=== PATIENT | female | born 1985 | race Caucasian/White ===

== ENCOUNTER → 2022-03-13 | Outpatient (CLI) | payer OTHER, SELFPAY ==
[2022-03-13 09:22] LABS: Absolute Lymphocyte Count 1.61 X10^3/uL (0.83-4.51); Absolute Neutrophil Count 8.7 X10^3/uL (2.0-7.7); Basophil# 0.06 X10^3/uL; Basophil% 0.5 % (0-1); Eosinophil# 0.19 X10^3/uL; Eosinophils% 1.7 % (0-5); Hematocrit 37.4 % (37-47); Hemoglobin 12.4 g/dL (12.0-15.0); Lymphocyte # 1.61 X10^3/ul (0.83-4.51); Lymphocyte % 14.2 % (19-41); Mean Corp Hgb Conc 33.2 g/dL (32-36); Mean Corpuscular Hgb 30.7 pg (27.0-32.0); Mean Corpuscular Volume 92.6 fL (81-99); Mean Platelet Vol. 10.6 fl (6.2-12.0); Monocyte# 0.68 X10^3/uL; NRBC Flagged by Analyzer 0 % (0-5); Neutrophil # 8.69 X10^3/uL (2.7-7.7); Neutrophil % 76.5 % (47-70); Platelet Count 284 K/mm3 (150-450); RBC Distribution Width CV 12.5 % (11.6-14.6); RBC Distribution Width SD 42.6 fl (35.1-43.9); Red Blood Count 4.04 M/mm3 (4.2-5.4); White Blood Count 11.4 K/mm3 (4.4-11.0)
[2022-03-13 10:27] LABS: HIV - WCH Non-Reactive (Nonreactive); Syphilis Antibodies Non-reactive
== END | disposition home or self-care (01) ==
PROVIDERS: Referring Provider Obstetrics & Gynecology; Visit Provider Obstetrics & Gynecology
DX: Z34.90 Encounter for supervision of normal pregnancy, unspecified, unspecified trimester (principal)
CPT/HCPCS: 36415; 85025; 86703; 86780

== ENCOUNTER → 2022-04-15 | Outpatient (CLI) | payer OTHER, SELFPAY | END | disposition home or self-care (01) | LOC: LABSPEC 10:32 | PROVIDERS: Visit Provider Registered Nurse | DX: Z34.90 Encounter for supervision of normal pregnancy, unspecified, unspecified trimester (principal) | CPT/HCPCS: 87081 ==

== ENCOUNTER → 2022-05-06 | Outpatient (CLI) | payer OTHER, SELFPAY ==
--- NOTE | 2022-05-06 08:08 | US_ITS ---
STUDY: SECOND AND THIRD TRIMESTER OBSTETRICAL ULTRASOUND REASON FOR EXAM: Female, 36 years old growth LMP: 08/03/2021. TECHNIQUE: Transabdominal TECHNICAL QUALITY: Adequate. PRIOR ULTRASOUND: None. FINDINGS: There is a single intrauterine fetus. The fetus is in a cephalic presentation. There is demonstrated cardiac activity with a heart rate of 136 bpm. There is a normal amniotic fluid volume. The largest amniotic fluid pocket measures 3 cm x 2.6 cm. The amniotic fluid index (JAXON) is 6.8 cm. The placenta is fundal in location. There are Grade 1 placental changes. The cervical length was not measured due to head position. The adnexal regions are not visualized. BIOMETRY: BPD: 9.46 cm: 38 weeks, 4 days HC: 33.6 cm: 38 weeks, 3 days AC: 36.2 cm: 40 weeks, 1 days FL: 7.32 cm: 37 weeks, 3 days CI: 84% FL/BPD: 77% FL/HC: FL/AC: 20% HC/AC: 0.93 age by current US: 38 weeks, 1 days. LSIBETH by current US: 05/19/2022. Estimated weight: 3768 grams, +/- 565 grams, 70 %. Age by LMP: 39 weeks, 3 days. LISBETH by LMP: 05/10/2022. US/OB Limited With Biometrics IMPRESSION: Single live intrauterine gestation with a mean gestational age of 38 weeks and 1 day. Electronically Signed: Jake Yan MD at 10:56 EST ,
== END | disposition home or self-care (01) ==
PROVIDERS: Referring Provider Obstetrics & Gynecology; Visit Provider Obstetrics & Gynecology
DX: O26.849 Uterine size-date discrepancy, unspecified trimester (principal)
CPT/HCPCS: 76816

== ENCOUNTER 2022-05-15 01:35 | Inpatient (IN) | payer OTHER, SELFPAY ==
[2022-05-15] VITALS (48 sets, daily range): BP systolic 97–142; BP diastolic 55–80; PULSE 78–198; RESP 16–18; TEMP 36.7–37.2; O2SAT 83–99; BMI 26.1
[2022-05-15] MEDS: Lactated Ringers 1,000 ML 200 ML IV (02:00)
[2022-05-15] MEDS: LACTATED RINGERS 500 ML 999 ML IV (02:00)
--- NOTE | 2022-05-15 02:15 | HP.PCM.OB_ITS ---
HPI - General General Date of Admission: 05/15/22 HPI Narrative DANA HOLLOWAY, is a 36 F who presents IAL regular ctx no vb lof Maternal Data Information LISBETH Calculator Estimated Delivery Date Method Current WG Current Estimate 05/10/22 LMP (Certain) 40w 5d PFSH PFSH Medical History (Updated 05/15/22 @ 02:[address] Annika Torre MD) Family history of hearing loss at age younger than 7 years Home Medications docosahexaenoic acid 200 mg capsule ( DHA) mg PO 02/25/22 [History Last Taken Unknown] 1 cap DAILY 05/15/22 [History Last Taken 05/13/22 20:00 1 cap] Allergy/AdvReac Type Severity Reaction Status Date / Time prednisone Allergy Mild chest pain Verified 05/13/22 10:58 amoxicillin [From Augmentin] AdvReac Mild migraine Verified 05/13/22 10:58 clavulanic acid AdvReac Mild migraine Verified 05/13/22 10:58 [From Augmentin] Family History Father Hypertension Hyperlipidemia Grandmother Colon cancer Surgical History S/P laparoscopic procedure Social History Smoking Status: Never smoker alcohol intake: never substance use type: does not use caffeine: No what type of physical activity do you participate in: walking frequency: 1-2 times per week seatbelt use: always do you feel safe at home: Yes additional social history: -Bryan History 4 Elective abortions Hx Para 2 Spontaneous abortions 1 Hx # Term Pregnancies Ectopic pregnancies Hx # Pregnancies Multiple births # of living children Past Pregnancies Del. 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 Baby was face up, used vacuum Delivery Date: 10/23/20 Last Updated by: April Celestin No issues with or delivery. Visit Details Expected Delivery Route/Plan Labor Preferences- CB/BF classes: [] labor support person: Bryan labor intervention preferences: low pain management options preferred: prefer natural and would like a tub cut cord/dad catch: [] : yes PP control planned: [condoms] discussed possible routes of delivery and associated risks: [] special requests: [] Plans Covid status: [] Flu vaccine: [] Tdap vaccine: obtained Rhogam: na LARC form signed:signed Problem list reviewed and updated with the most current plan of care details and appropriate orders placed. Relevant counseling for the gestational age provided. Continue routine care and follow up unless otherwise noted in visit notes/problem list details OB Flowsheet Initial Weight: Not Recorded Date -?-?-?-?-?-?-?-?-?-?-?-?- EGA Weight BP Urine Prot -?-?-?-?-?-?-?-?-?-?-?-?- Glucose FHR FuHt Pres Dilation -?-?-?-?-?-?-?-?-?-?-?-?- Effaced St Visit Note 02/25/22 -?-?-?-?-?-?-?-?-?-?-?-?- 29w 3d 136 lb 8 oz 102/66 -?-?-?-?-?-?-?-?-?-?-?-?- 135 27 -?-?-?-?-?-?-?-?-?-?-?-?- JV- new transfer , waiting on records. 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 03/13/22 -?-?-?-?-?-?-?-?-?-?-?-?- 31w 5d 140 lb 114/72 Negative -?-?-?-?-?-?-?-?-?-?-?-?- Negative 144 32 -?-?-?-?-?-?-?-?-?-?-?-?- LC-no lof/ctx/vb . good fm. tdap today. larc. going to get 28 week labs today. 03/25/22 -?-?-?-?-?-?-?-?-?-?-?-?- 33w 3d 141 lb 119/73 Negative -?-?-?-?-?-?-?-?-?-?-?-?- Negative 145 32 -?-?-?-?-?-?-?-?-?-?-?-?- JV- still measur ing a little small. ordering growth scan for hopefully apr 15 . No lof, vaginal bleeding, or dec fm. 04/10/22 -?-?-?-?-?-?-?-?-?-?-?-?- 35w 5d 145 lb 92/70 -?-?-?-?-?-?-?-?-?-?-?-?- 150 35 -?-?-?-?-?-?-?-?-?-?-?-?- SM- no vb lof go od fm no regular ctx. discussed labor preferences. measuring appropriately will hold off on ultrasound 04/15/22 -?-?-?-?-?-?-?-?-?-?-?-?- 36w 3d 145 lb 2 oz 98/65 Nega tive -?-?-?-?-?-?-?-?-?-?-?-?- Negative 143 36 Cephalic -?-?-?-?-?-?-?-?-?-?-?-?- LC- no vb/ctx/lo f. good fm. no concerns. gbs collected declines VE. 04/24/22 -?-?-?-?-?-?-?-?-?-?-?-?- 37w 5d 146 lb 8 oz 127/76 Nega tive -?-?-?-?-?-?-?-?-?-?-?-?- Negative 150 34 Cephalic -?-?-?-?-?-?-?-?-?-?-?-?- JV- still measur ing small on my exam. pt declines growth scan. has great movement, no lof or contractions. declines pelvic exam. vtx on bedside scan. 05/01/22 -?-?-?--?-?-?-?-?-?-?-?-?- 38w 5d 148 lb 6 oz 123/75 -?-?-?-?-?-?-?-?-?-?-?-?- 150 36 Cephalic -?-?-?-?-?-?-?-?-?-?-?-?- Sm- no vb lof go od fm no regular ctx Sm- no vb lof good fm no reg ular ctx. discussed getting growth US, patient agrees to get. 05/06/22 -?-?-?-?-?-?-?-?-?-?-?-?- 39w 3d 148 lb 2 oz 119/80 -?-?-?-?-?-?-?-?-?-?-?-?- 145 37 Cephalic -?-?-?-?-?-?-?-?-?-?-?-?- LC- no vb/ctx/lo f. good fm. growth scan -71%. 05/13/22 -?-?-?-?-?-?-?-?-?-?-?-?- 40w 3d 151 lb 2 oz 117/74 Nega tive -?-?-?-?-?-?-?-?-?-?-?-?- Negative 140 38 Cephalic -?-?-?-?-?-?-?-?-?-?-?-?- JV- colten 8 today (was 6.8 last week) estimated to be 8-9 pounds today. declines IOL, will need nst if still next week. 05/15/22 -?-?-?-?-?-?-?-?-?-?-?-?- 40w 5d 152 lb 5.431 oz 120/80 -?-?-?-?-?-?-?-?-?-?-?-?- -?-?-?-?-?-?-?-?-?-?-?-?- NST FHR Rate Baby A Baseline: 140 Variability:: Moderate Accelerations:: 15 x 15 Decelerations:: None NST Reactive:: Yes FHR Category:: Category I Uterine Activity:: q3-5 ROS Constitutional Constitutional: Reports systems reviewed and no addt'l complaints, except as documented ENT HEENT: Reports systems reviewed and no addt'l complaints, except as documented Cardiovascular Cardiovascular: Reports systems reviewed and no addt'l complaints, except as documented Respiratory/Chest Respiratory/Chest: Reports systems reviewed and no addt'l complaints, except as documented Gastrointestinal Gastrointestinal: Reports systems reviewed and no addt'l complaints, except as documented and nausea; Denies abdominal pain Genitourinary Genitourinary: Reports systems reviewed and no addt'l complaints, except as documented, contractions Details: present and frequency (regular ) and movement Details: present Musculoskeletal Musculoskeletal: Reports systems reviewed and no addt'l complaints, except as documented Integumentary Integumentary: Reports as per HPI Neurologic Neurologic: Reports systems reviewed and no addt'l complaints, except as documented Endocrine Endocrinology: Reports systems reviewed and no addt'l complaints, except as documented Vital Signs Vital Signs Vital Signs: 05/15/22 01:24 05/15/22 01:24 05/15/22 01:24 Temperature Temperature Source Temporal Pulse Rate 108 H Blood Pressure 120/80 BP Systolic 120 BP Diastolic 80 Pulse Ox 05/15/22 01:25 05/15/22 01:25 05/15/22 01:24 Temperature 98.1 F Temperature Source Pulse Rate 101 H Blood Pressure BP Systolic BP Diastolic Pulse Ox 97 Weight Weight: 152 lb 5.431 oz Body Mass Index (BMI) 26.1 Physical Exam Const alert, oriented x3 and healthy appearing Constitutional Narrative: uncomfortable with contractions HEENT normocephalic and moist oral mucous membranes Head and Scalp: atraumatic Neck full ROM, no lymphadenopathy, supple and thyroid normal General: trachea midline Thyroid: thyroid normal Lymph Lymphatic: no lymphadenopathy noted Chest inspection of chest normal Resp normal respiratory effort Cardio regular rate GI normal to inspection, nondistended, normoactive bowel sounds, soft to palpation and non-tender Inspection: gravid external exam normal Bimanual Exam - Vag & Uterus: uterus non-tender Manual OB Exam: estimated gestational size appropriate, presentation cephalic, dilated, effaced and station Extremity normal to inspection General Extremity: Negative for edema Skin no rashes or lesions noted Neuro deep tendon reflexes 2+ bilaterally Motor Exam: strength 5/5 throughout and clonus absent Psych mental status grossly normal Labs Labs Labs: Hct 37.4 % (37-47) Hgb 12.4 g/dL (12.0-15.0) Obstetrics US Syphilis Total Ab Non-reactive HIV 1&2 Antibody Non-Reactive (Nonreactive) Assessment & Plan (1) Supervision of normal : COMMENT: PRR LISBETH 05/10/22 surprise Tyron Cardenas Bryan (2) : QUALIFIERS: Weeks of gestation: 40 weeks Qualified Code(s): Z3A.40 - 40 weeks gestation of COMMENT: GBS neg. normal anatomy,lab error for genetic screening- not reobtained. transfer of care: NOB labs neg HIV/syphilis/hep c, b.gc/ct negative. nob urine cx negative. 1 trimester u/s- CRL c/w LMP. (3) Rubella non-immune status, antepartum: COMMENT: offer MMR . indeterminate on 10/16/2021 (4) Active labor at term: PLAN: Plan Patient presents IAL, plan expectant management for , pitocin/AROM PRN if n eeded. Pain management: considering epidural. GBS neg. Management of any complications: none I have reviewed the [facility] and made any clinically relevant updates.
[2022-05-15 02:20] LABS: Absolute Lymphocyte Count 2.15 X10^3/uL (0.83-4.51); Absolute Neutrophil Count 8.9 X10^3/uL (2.0-7.7); Basophil# 0.16 X10^3/uL; Basophil% 1.2 % (0-1); Eosinophil# 0.31 X10^3/uL; Eosinophils% 2.4 % (0-5); Hematocrit 33.4 % (37-47); Lymphocyte # 2.15 X10^3/ul (0.83-4.51); Lymphocyte % 16.6 % (19-41); Mean Corp Hgb Conc 32.9 g/dL (32-36); Mean Corpuscular Hgb 30.9 pg (27.0-32.0); Mean Corpuscular Volume 93.8 fL (81-99); Mean Platelet Vol. 11.5 fl (6.2-12.0); Monocyte# 0.94 X10^3/uL; Monocyte% 7.2 % (0-10); NRBC Flagged by Analyzer 0 % (0-5); Neutrophil # 8.94 X10^3/uL (2.7-7.7); Platelet Count 253 K/mm3 (150-450); RBC Distribution Width CV 13.2 % (11.6-14.6); RBC Distribution Width SD 45.1 fl (35.1-43.9); Red Blood Count 3.56 M/mm3 (4.2-5.4)
[2022-05-15] MEDS: fentaNYL-bupivacaine (epidural) 100 ML BAG EPIDURAL (02:43)
[2022-05-15 03:22] LABS: Syphilis Antibodies Non-reactive
[2022-05-15] MEDS: Oxytocin 10 UNITS/ML Vial IM (03:56)
[2022-05-15] MEDS: Oxytocin 15 Units/NS 250ml 15 UNITS/250 ML IV.SOLN 83 UNITS IV (04:00)
--- NOTE | 2022-05-15 04:45 | EX.PCM.OBRPT ---
Assessment & Plan (1) Active labor at term: (2) Supervision of normal : COMMENT: PRR LISBETH 05/10/22 surprise Tyron Cardenas Bryan (3) : QUALIFIERS: Weeks of gestation: 40 weeks Qualified Code(s): Z3A.40 - 40 weeks gestation of COMMENT: GBS neg. normal anatomy,lab error for genetic screening- not reobtained. transfer of care: NOB labs neg HIV/syphilis/hep c, b.gc/ct negative. nob urine cx negative. 1 trimester u/s- CRL c/w LMP. (4) Rubella non-immune status, antepartum: COMMENT: offer MMR . indeterminate on 10/16/2021 (5) Vaginal delivery: COMMENT: SM IAL 40 girl mellisa Maternal Data Information LISBETH Calculator Estimated Delivery Date Method Current WG Current Estimate 05/10/22 LMP (Certain) 40w 5d Vaginal Delivery Operative Information Date of Procedure: 05/15/22 Pre-Operative Diagnosis: see a/p diagnoses Post-Operative Diagnosis: same Surgery / Procedure Performed: Spontaneous Vaginal Delivery Type of Anesthesia: Epidural Special Medications: none Estimated Blood Loss: 200 Fluids Replaced: crystalloid Findings Description of Procedure: Patient began pushing and delivered the head in the CHRISTINA presentation. The head was delivered atraumatically and a loose nuchal cord ?1 was identified and the infant delivered through without complication. The anterior and posterior shoulders delivered without complication followed by the rest of the and the infant was placed on the maternal abdomen. Delayed cord clamping was employed for approximately 60 seconds. Cord was clamped and cut and gentle traction was applied to the cord and the placenta delivered spontaneously immediately following it was noted to be intact with three-vessel cord. The perineum and vagina were inspected and noted to have a 2nd degree perineal laceration which was repaired in the usual fashion with 3-0 vicryl rapide. . EBL was 200 cc. Patient and infant tolerated delivery well. Amniotic Fluid Description: Clear Placental Delivery Description: Spontaneous Placenta Disposition: [facility] Cord Vessel Description: 3 Vessels Cord Entanglement: None Delayed Cord Clamping: Yes Post Vaginal Delivery Medications Given After Delivery: IV Pitocin Episiotomy Description: None Complication Complications: None Procedures Urinary/Genital [id number]: [id number] Vaginal Delivery [facility]
--- NOTE | 2022-05-15 04:46 | DCINST_ITS ---
Discharge Instructions Diet Discharge Diet: No restrictions Activity Discharge Activity: Return to Normal Activity, May Drive, May Shower and May Take a Tub Bath (in 4 weeks) May resume sexual activity in: 6-8 weeks (after seen by OB provider) Weight Bearing Status: Full weight bearing Lifting Restrictions: none Dressing / Incision Call your doctor if you observe: Fever of 101 or Higher, Inability to urinate, Using more than 1 pad per hour (for more than 2 hours in a row or more), Shortness of breath, Dizziness, Chest pain and - (headache not controlled with tylenol, change in vision) Follow Up Care When: in 6 weeks for visit, call the office to make the appointment. If you had elevated blood pressures call the office to be seen within 1 week. Test Results: Test results from this visit will be discussed in further detail at your follow- up appointment, if applicable. Discharge Plan Admission Admit Date/Time: 05/15/22 01:35 Attending Provider: Annika Torre Primary Care Provider: Care Physician,Janae Primary Discharge Orders/Prescriptions Prescriptions: No Action DHA 200 mg capsule PO 1 cap DAILY Referrals / Follow Up: Care Physician,No Primary [Primary Care Provider] - Disposition Disposition (needs filled in before D/C Order can be placed): Home, Self Care
[2022-05-15] MEDS: Methylergonovine 0.2 MG/ML Ampul IM (06:02)
[2022-05-15] MEDS: Naproxen 500 MG Tablet PO ×2 (09:26→17:50)
[2022-05-15] MEDS: Acetaminophen 500 MG Tablet 1000 MG PO ×3 (10:14→22:25)
[2022-05-15] MEDS: Senna/Docusate Sodium 1 Tablet PO (18:00)
[2022-05-16 00:17] VITALS: BP 99/63; PULSE 88
[2022-05-16] MEDS: oxyCODONE 5 MG Tablet PO (00:19)
[2022-05-16 00:21] VITALS: BP 99/63; PULSE 88; RESP 16; TEMP 36.6
[2022-05-16 05:24] VITALS: BP 100/61; PULSE 73
[2022-05-16 05:25] VITALS: BP 100/61; PULSE 70; RESP 16; TEMP 36.8; O2SAT 97
[2022-05-16] MEDS: Naproxen 500 MG Tablet PO (05:35)
[2022-05-16 09:18] VITALS: BP 91/54; PULSE 78
[2022-05-16 09:43] VITALS: BP 91/54; PULSE 78; RESP 14; TEMP 36.7; O2SAT 96
--- NOTE | 2022-05-16 09:56 | PCM.PN.OB ---
Subjective Subjective Patient doing well without complaints. Tolerating PO. Ambulating and voiding without difficulty. Feeding well. Denies chest pain, shortness of breath, calf pain/swelling, fevers, chills, lightheadedness. Objective Data Objective Data Vital Signs: Vital Signs Temp Pulse Resp BP Pulse Ox O2 Del Method 98.1 F 78 14 91/54 L 96 Room Air 05/16/22 09:43 05/16/22 09:43 05/16/22 09:43 05/16/22 09:43 05/16/22 09:43 05/16/22 09:43 Oxygen Delivery Method Room Air Weight: 152 lb 5.431 oz Body Mass Index (BMI) 26.1 Intake & Output: Intake and Output for Last 24 Hours 05/14/22 05/15/22 05/16/22 23:59 23:59 23:59 Intake Total 1499 / 1499 Output Total 1700 / 1700 Balance -201 / -201 Lab / Micro Data Result Diagrams: 05/15/22 02:00 ROS Constitutional Constitutional: Denies chills, fatigue, fever(s), poor appetite or weakness Eyes Eyes: Denies blurry vision, change in vision, seeing flashes or spots in vision ENT HEENT: Denies dizziness, headache(s), loss taste/smell or sore throat Cardiovascular Cardiovascular: Denies chest pain, dizziness, dyspnea, irregular heart rhythm, palpitations or rapid heart rate Respiratory/Chest Respiratory/Chest: Denies chest tightness, cough, dyspnea or breast pain Gastrointestinal Gastrointestinal: Denies abdominal pain, constipation or vomiting Genitourinary Genitourinary: Denies dysuria or flank pain Musculoskeletal Musculoskeletal: Denies difficulty walking, joint pain, limited range of motion or numbness Neurologic Neurologic: Denies abnormal movements, abnormal speech, dizziness, numbness, seizure-like activity or syncope Psychiatric Psychiatric: Denies anxiety, behavioral changes, change in appetite, confusion, depression or suicidal thoughts Physical Exam Const alert, oriented x3 and no apparent distress General Appearance: cooperative and comfortable Resp normal respiratory effort Cardio regular rate GI normal to inspection, nondistended, normoactive bowel sounds GI Narrative: uterus is firm below umbilicus Palpation: soft Back/Spine no CVA tenderness and thoraco-lumbar ROM normal Extremity normal to inspection, no clubbing, cyanosis or edema, no calf tenderness and no pedal edema Psych mental status grossly normal, thought process normal, cooperative, affect normal, speech normal, activity/motor behavior normal, denies homicidal ideation and denies suicidal ideation Assessment & Plan (1) Vaginal delivery: COMMENT: CARISSA MONTAÑO IAL 40 girl mellisa PLAN: s/p PPD # 1 1. routine post delivery care 2. breast feeding- support given 3. rh positive 4. rubella non-immune- vaccine offered 5. dc today per patient request.
== END 2022-05-16 11:08 | disposition home or self-care (01) | DRG 807 ==
LOC: WPOUT 01:36 → WP 01:36
PROVIDERS: Admitting Provider Obstetrics & Gynecology; Referring Provider Obstetrics & Gynecology; Visit Provider Obstetrics & Gynecology
DX: O70.1 Second degree perineal laceration during delivery (principal); Z37.0 Single live birth; O26.23 Pregnancy care for patient with recurrent pregnancy loss, third trimester; O48.0 Post-term pregnancy; O69.81X0 Labor and delivery complicated by cord around neck, without compression, not applicable or unspecified; Z3A.40 40 weeks gestation of pregnancy; Z28.39 Other underimmunization status
CPT/HCPCS: 59025; 59050; 85025; 86780; 86850; 86900; 86901; 99221; J7120; G0378

== ENCOUNTER → 2023-11-11 | Outpatient (CLI) | payer OTHER, SELFPAY ==
[2023-11-16 21:07] LABS: Chlamydia By Nucleic Acid AMP Negative (Negative); Gonococcus By Nucleic Acid AMP Negative (Negative)
[2023-11-17 11:09] LABS: HPV APTIMA, High Risk Negative (Negative)
== END | disposition home or self-care (01) ==
PROVIDERS: Referring Provider Obstetrics & Gynecology; Visit Provider Obstetrics & Gynecology
DX: O09.90 Supervision of high risk pregnancy, unspecified, unspecified trimester (principal); Z3A.00 Weeks of gestation of pregnancy not specified; Z12.4 Encounter for screening for malignant neoplasm of cervix
CPT/HCPCS: 87086; 87491; 87591; 87624; 88175; G0145

== ENCOUNTER → 2023-12-03 | Outpatient (CLI) | payer OTHER, SELFPAY ==
[2023-12-03 12:21] LABS: Absolute Lymphocyte Count 1.62 X10^3/uL (0.83-4.51); Basophil# 0.03 X10^3/uL; Basophil% 0.4 % (0-1); Eosinophil# 0.06 X10^3/uL; Eosinophils% 0.7 % (0-5); Hematocrit 37.1 % (37-47); Hemoglobin 12.5 g/dL (12.0-15.0); Lymphocyte # 1.62 X10^3/ul (0.83-4.51); Lymphocyte % 19.6 % (19-41); Mean Corp Hgb Conc 33.7 g/dL (32-36); Mean Corpuscular Hgb 30.1 pg (27.0-32.0); Mean Corpuscular Volume 89.4 fL (81-99); Mean Platelet Vol. 10.8 fl (6.2-12.0); Monocyte# 0.47 X10^3/uL; Monocyte% 5.7 % (0-10); NRBC Flagged by Analyzer 0 % (0-5); Neutrophil # 6.04 X10^3/uL (2.7-7.7); Neutrophil % 73.2 % (47-70); Platelet Count 280 K/mm3 (150-450); RBC Distribution Width CV 12.7 % (11.6-14.6); RBC Distribution Width SD 41.5 fl (35.1-43.9); Red Blood Count 4.15 M/mm3 (4.2-5.4); White Blood Count 8.3 K/mm3 (4.4-11.0)
[2023-12-03 13:21] LABS: HIV - WCH Non-Reactive (Nonreactive); Hepatitis B Surface Antigen Non-Reactive (Nonreactive); Hepatitis C Antibody Non-Reactive (Nonreactive); Rubella IgG Reactive (Nonreactive); Syphilis Antibodies Non-reactive
== END | disposition home or self-care (01) ==
LOC: LAB 11:37
PROVIDERS: Referring Provider Obstetrics & Gynecology; Visit Provider Obstetrics & Gynecology
DX: O09.90 Supervision of high risk pregnancy, unspecified, unspecified trimester (principal); Z3A.00 Weeks of gestation of pregnancy not specified
CPT/HCPCS: 36415; 85025; 86703; 86762; 86780; 86803; 86850; 86900; 86901; 87340

== ENCOUNTER → 2024-03-22 | Outpatient (CLI) | payer OTHER, SELFPAY ==
[2024-03-22 09:27] LABS: Absolute Lymphocyte Count 1.55 X10^3/uL (0.83-4.51); Basophil# 0.04 X10^3/uL; Basophil% 0.4 % (0-1); Eosinophil# 0.06 X10^3/uL; Eosinophils% 0.6 % (0-5); Hematocrit 37.1 % (37-47); Hemoglobin 12.2 g/dL (12.0-15.0); Lymphocyte # 1.55 X10^3/ul (0.83-4.51); Lymphocyte % 16.8 % (19-41); Mean Corp Hgb Conc 32.9 g/dL (32-36); Mean Corpuscular Hgb 30.2 pg (27.0-32.0); Mean Corpuscular Volume 91.8 fL (81-99); Mean Platelet Vol. 10.6 fl (6.2-12.0); Monocyte# 0.55 X10^3/uL; NRBC Flagged by Analyzer 0 % (0-5); Neutrophil # 6.97 X10^3/uL (2.7-7.7); Neutrophil % 75.4 % (47-70); Platelet Count 296 K/mm3 (150-450); RBC Distribution Width CV 12.5 % (11.6-14.6); RBC Distribution Width SD 41.5 fl (35.1-43.9); Red Blood Count 4.04 M/mm3 (4.2-5.4); White Blood Count 9.2 K/mm3 (4.4-11.0)
[2024-03-22 10:34] LABS: HIV - WCH Non-Reactive (Nonreactive); Syphilis Antibodies Non-reactive
[2024-03-22 10:48] LABS: Glucose Challenge Gest 1H 50g 119 mg/dL (70-140)
== END | disposition home or self-care (01) ==
LOC: LAB 09:02
PROVIDERS: Referring Provider Registered Nurse; Visit Provider Registered Nurse
DX: O09.92 Supervision of high risk pregnancy, unspecified, second trimester (principal); Z3A.00 Weeks of gestation of pregnancy not specified
CPT/HCPCS: 36415; 82950; 85025; 86703; 86780

== ENCOUNTER → 2024-05-17 | Outpatient (CLI) | payer OTHER, SELFPAY | END | disposition home or self-care (01) | LOC: LABSPEC 09:50 | PROVIDERS: Referring Provider Obstetrics & Gynecology; Visit Provider Obstetrics & Gynecology | DX: O09.93 Supervision of high risk pregnancy, unspecified, third trimester (principal); Z3A.00 Weeks of gestation of pregnancy not specified | CPT/HCPCS: 87081 ==

== ENCOUNTER → 2024-06-02 | Outpatient (CLI) | payer OTHER, SELFPAY ==
--- NOTE | 2024-06-02 07:37 | US_ITS ---
PROCEDURE: OB LIMITED WITH BIOMETRICS 06/02/2024 REASON FOR EXAM: UTERINE SIZE DATE DISCREPENCY TECHNIQUE: Transabdominal obstetric ultrasound FINDINGS Single live intrauterine . Presentation is cephalic. Cardiac activity is present at 145 beats per minute. JAXON 8.5 cm, maximum vertical pocket 3.8 cm. The cervical length is not visualized. Adnexa not visualized. Anterior grade 2 placenta appears within limits. DIMENSIONS: Biparietal Diameter: 9.0 cm/36 weeks 3 days Head Circumference: 32.5 cm/36 weeks 5 days Abdominal Circumference: 34.9 cm/38 weeks 6 days Femur Length: 7.3 cm/37 weeks 3 days FL/AC 21%, FL/BPD 81%, FL/HC 23%, CI 80%, HC/AC 0.9 ESTIMATED WEIGHT: 3417 g +/-513 g ESTIMATED WEIGHT PERCENTILE (24+ weeks): 61% ESTIMATED GESTATIONAL AGE: By Ultrasound: 37 weeks 1 day LISBETH by ultrasound 06/22/2024 age by LMP 38 weeks 2 days, LISBETH by LMP 06/14/2024 US/OB Limited With Biometrics IMPRESSION: Single live intrauterine with ultrasound age of 37 weeks and 1 day and biometrics as above. Reading Location: [id number]
== END | disposition home or self-care (01) ==
LOC: US 07:35
PROVIDERS: PCP Physician Assistant; Referring Provider Obstetrics & Gynecology; Visit Provider Obstetrics & Gynecology
DX: O26.843 Uterine size-date discrepancy, third trimester (principal); Z3A.37 37 weeks gestation of pregnancy
CPT/HCPCS: 76816

== ENCOUNTER 2024-06-15 13:20 | Inpatient (IN) | payer OTHER, SELFPAY ==
[2024-06-15] VITALS (56 sets, daily range): BP systolic 96–138; BP diastolic 48–75; PULSE 74–153; RESP 16–20; TEMP 36.6–36.7; O2SAT 90–99; BMI 26.5
[2024-06-15 12:27] LABS: ROM Internal Control Test YES-OK TO RESULT pt. (Internal QC); ROM Patient Test Negative (Negative); Record Kit Lot#, ROM+ K3294
[2024-06-15] MEDS: Lactated Ringers 1,000 ML 999 ML IV (13:30)
[2024-06-15 13:55] LABS: Absolute Lymphocyte Count 1.86 X10^3/uL (0.83-4.51); Absolute Neutrophil Count 9.1 X10^3/uL (2.0-7.7); Basophil# 0.09 X10^3/uL; Basophil% 0.7 % (0-1); Eosinophil# 0.16 X10^3/uL; Eosinophils% 1.3 % (0-5); Hematocrit 34.8 % (37-47); Hemoglobin 11.9 g/dL (12.0-15.0); Lymphocyte # 1.86 X10^3/ul (0.83-4.51); Lymphocyte % 15.5 % (19-41); Mean Corp Hgb Conc 34.2 g/dL (32-36); Mean Corpuscular Hgb 30.4 pg (27.0-32.0); Mean Corpuscular Volume 88.8 fL (81-99); Mean Platelet Vol. 11.7 fl (6.2-12.0); Monocyte# 0.69 X10^3/uL; Monocyte% 5.7 % (0-10); NRBC Flagged by Analyzer 0 % (0-5); Neutrophil # 9.05 X10^3/uL (2.7-7.7); Neutrophil % 75.5 % (47-70); Platelet Count 246 K/mm3 (150-450); RBC Distribution Width CV 13.1 % (11.6-14.6); RBC Distribution Width SD 42.4 fl (35.1-43.9); Red Blood Count 3.92 M/mm3 (4.2-5.4)
[2024-06-15] MEDS: fentaNYL-bupivacaine (epidural) 100 ML BAG EPIDURAL (14:23)
[2024-06-15] MEDS: Lactated Ringers 1,000 ML 200 ML IV (14:40)
[2024-06-15 15:10] LABS: Syphilis Antibodies Nonreactive (Nonreactive)
[2024-06-15] MEDS: Oxytocin 10 UNITS/ML Vial IM (15:52)
[2024-06-15] MEDS: Oxytocin 15 Units/NS 250ml 15 UNITS/250 ML IV.SOLN 83 UNITS IV (15:52)
--- NOTE | 2024-06-15 16:09 | HP.PCM.OB_ITS ---
HPI - General General Date of Admission: 06/15/24 HPI Narrative DANA HOLLOWAY, is a 38 y/o @ 40 weeks 5 days who presents to L&D in active labor. She was found to be 4 cm dilated and progressed to 5 cm in triage. She is requesting an epidural. Maternal Data Information LISBETH Calculator Estimated Delivery Date Method Current WG Current Estimate 06/10/24 Ultrasound #1 40w 5d Other Estimates 06/14/24 LMP (Certain) 40w 1d PFSH PFSH Medical History Vaginal delivery Family history of hearing loss at age younger than 7 years Home Medications ?Medication ?Instructions ?Recorded ?Last Taken ?Type multivitamin no.47-iron fum 27 cap PO 06/14/24 History mg-folate no.1 1 mg-dha 300 mg capsule (PNV-DHA) Allergy/AdvReac Type Severity Reaction Status Date / Time No Known Allergies Allergy Verified 06/15/24 13:26 Family History Father Hypertension Hyperlipidemia Grandmother Colon cancer Surgical History S/P laparoscopic procedure Social History adopted: No household members: spouse and children number of children: 3 current occupational status: unemployed current occupation: [employer] pets and animals: No history of recent travel: No sexually active: Yes Smoking Status: Never smoker alcohol intake: never substance use type: does not use well-balanced diet: daily or most days caffeine: No eating out: rarely or never during the past year weight has: remained stable what type of physical activity do you participate in: walking frequency: 1-2 times per week duration: 15-30 minutes/day leslie/pentecostal: Religious seatbelt use: always do you feel safe at home: Yes additional social history: -Bryan History 5 Elective abortions Hx Para 3 Spontaneous abortions 1 Hx # Term Pregnancies Ectopic pregnancies Hx # Pregnancies Multiple births # of living children 3 Past Pregnancies Del. Date Name GA/Weeks Outcome Route Bth Weight Gen Labor Lgth Anesthesia Del Locatn Provider FOB 02/07/18 Tyron 40 live - full term vacuum 7lbs 9oz Male 9 ho urs epidural [facility] [place] Dr. Sherman Adams 10/23/20 Norman 40 live - full term 7lbs 6oz Male 3 ho urs none [facility] Specimen Boss Bryan 05/15/22 Maria G 40 live - full term 7# 8oz Female epid ural [facility] Annika Adams Delivery Date: 02/07/18 Last Updated by: April Celestin No issues during . Baby was face up, used vacuum Delivery Date: 10/23/20 Last Updated by: April Celestin No issues with or delivery. Delivery Date: 05/15/22 Last Updated by: Ivania Suggs see problem list for complications, SM IAL 40 girl Maria G. Visit Details Expected Delivery Route/Plan Labor Preferences- CB/BF classes: no labor support person: Bryan labor intervention preferences: epidural if requested pain management options preferred: [] cut cord/dad catch: yes : yes PP control planned: discussed discussed possible routes of delivery and associated risks: [] special requests: [] Plans Covid status: [] Flu vaccine: declines Tdap vaccine: [] Rhogam: na LARC form signed: yes Problem list reviewed and updated with the most current plan of care details and appropriate orders placed. Relevant counseling for the gestational age provided. Continue routine care and follow up unless otherwise noted in visit notes/problem list details OB Flowsheet Initial Weight: Not Recorded Date -?-?-?-?-?-?-?-?-?-?-?-?- EGA Weight BP Urine Prot -?-?-?-?-?-?-?-?-?-?-?-?- Glucose FHR FuHt Pres Dilation -?-?-?-?-?-?-?-?-?-?-?-?- Effaced St Visit Note 11/11/23 -?-?-?-?-?-?-?-?-?-?-?-?- 9w 5d 127 lb 2 oz 126/73 -?-?-?-?-?-?-?-?-?-?-?-?- 182 -?-?-?-?-?-?-?-?-?-?-?-?- KW-CRL 2.86cm co ns with 9.5 weeks. Declines NIPT at this time 12/10/23 -?-?-?-?-?-?-?-?-?-?-?-?- 13w 6d 129 lb 117/73 Negative -?-?-?-?-?-?-?-?-?-?--?-?- Negative 180 -?-?-?-?-?-?-?-?-?-?-?-?- JV- still feelin g very nauseated. CRL consistent with GA. no spotting or cramping. overall doing well. 01/07/24 -?-?-?-?-?-?-?-?-?-?-?-?- 17w 6d 133 lb 121/72 Negative -?-?-?-?-?-?-?-?-?-?-?-?- Negative 150 -?-?-?-?-?-?-?-?-?-?-?-?- SM- no vb crampi ng 02/02/24 -?-?-?-?-?-?-?-?-?-?-?-?- 21w 4d 136 lb 102/68 Negative -?-?-?-?-?-?-?-?-?-?-?-?- Negative 154 -?-?-?-?-?-?-?-?-?-?-?--?- MH-NO VB, LOF. G ood FM. Reviewed anatomy US 03/03/24 -?-?-?-?-?-?-?-?-?-?-?-?- 25w 6d 139 lb 8 oz 108/68 Nega tive -?-?-?-?-?-?-?-?-?-?-?-?- Negative 150 24.5 -?-?-?-?-?-?-?-?-?-?-?-?- LC- no vb/ctx/lo f. good fm. runs low FH with all babies, if still low next visit open to us. anatomy normal. obtaining fresh test for glucose next visit. 03/22/24 -?-?-?-?-?-?-?-?-?-?-?-?- 28w 4d 144 lb 8 oz 114/72 Nega tive -?-?-?-?-?-?-?-?-?-?-?-?- Negative 150 27 -?-?-?-?-?-?-?-?-?-?-?-?- MH-No VB, LOF. G ood FM. 29 wk labs pending. Larc. 04/06/24 -?-?-?-?-?-?-?-?-?-?-?-?- 30w 5d 147 lb 110/72 Negative -?-?-?-?-?-?-?-?-?-?-?-?- Negative 149 29 -?-?-?-?-?-?-?-?-?-?-?-?- JV- no lof, vagi nal bleeding, or dec fm. growth scan at 32 weeks coming up. no complaints. 05/05/24 -?-?-?-?-?-?-?-?-?-?-?-?- 34w 6d 148 lb 4 oz 112/69 Nega tive -?-?-?-?-?-?-?-?-?-?-?-?- Negative 140 30 -?-?-?-?-?-?-?-?-?-?-?-?- KW- no vb/crampi ng. good fm. doing well. KW- no vb/cramping. good fm. doing well. Request for US growth report from [facility] from 2 weeks ago 05/17/24 -?-?-?-?-?-?-?-?-?-?-?-?- 36w 4d 151 lb 6 oz 128/69 Nega tive -?-?-?-?-?-?-?-?-?-?-?-?- Negative 156 35 -?-?-?-?-?-?-?-?-?-?-?-?- JV- GBS collecte d. no complaints other than insomnia. declines cx check 05/24/24 -?-?-?-?-?-?-?-?-?-?-?-?- 37w 4d 154 lb 2 oz 121/76 Nega tive -?-?-?-?-?-?-?-?-?-?-?-?- Negative 145 35 -?-?-?-?-?-?-?-?-?-?-?-?- SM- no vb lof go od fm nor [facility] -?-?-?-?-?-?-?-?-?-?-?-?- 38w 4d 154 lb 4 oz 128/79 Nega tive -?-?-?-?-?-?-?-?-?-?-?-?- Negative 155 38 -?-?-?-?-?-?-?-?-?-?-?-?- SM- no vb lof go od fm no reugalr ctx needs growth US wants to go to 40 weeks if reassuring testing. 06/07/24 -?-?-?-?-?-?-?-?-?-?-?-?- 39w 4d 154 lb 4 oz 115/75 Nega tive -?-?-?-?-?-?-?-?-?-?-?-?- Negative 150 39 Cephalic -?-?-?-?-?-?-?-?-?-?-?-?- JV- EFW from n wednesday was 7 lbs 9 oz, vtx, normal JAXON. report still pending. NST reactive. wants to set up June 16 for IOL if no active labor by then. 06/13/24 -?-?-?-?-?-?-?-?-?-?-?-?- 40w 3d 155 lb 4 oz 125/77 Nega tive -?-?-?-?-?-?-?-?-?-?-?-?- Negative 150 39 Cephalic 3 -?-?-?-?-?-?-?-?-?-?-?-?- 70 -3 JV- subtle questionable variable with one contraction. kept on monitor longer JV- subtle questionable vari able with one contraction. kept on monitor longer and other contractions did not exhibit any subtle decels. JAXON today is 8. IOL later this week. ROS Constitutional Constitutional: Denies change in weight, fatigue, fever(s), headache(s), poor appetite or weakness Eyes Eyes: Denies blurry vision, change in vision, seeing flashes or spots in vision ENT HEENT: Denies dizziness, headache(s), loss taste/smell or sore throat Cardiovascular Cardiovascular: Denies chest pain, dizziness, dyspnea, irregular heart rhythm, leg edema, palpitations, rapid heart rate or vomiting Respiratory/Chest Respiratory/Chest: Denies chest tightness, cough, dyspnea or breast pain Gastrointestinal Gastrointestinal: Denies abdominal pain, anorexia, constipation, cramping, diarrhea, hemorrhoids, vomiting or weight changes Genitourinary Genitourinary: Denies dysuria, flank pain, genital lesions, genital pain, urinary frequency or urinary urgency Musculoskeletal Musculoskeletal: Denies back pain, difficulty walking, joint pain, limited range of motion, muscle cramps or numbness Integumentary Integumentary: Denies lesions or unusual bruising Neurologic Neurologic: Denies abnormal movements, abnormal speech, dizziness, numbness, seizure-like activity or syncope Psychiatric Psychiatric: Denies anxiety, behavioral changes, change in appetite, change in libido, cognitive impairment, confusion, depression, difficulty concentrating, hallucinations or suicidal thoughts Endocrine Endocrinology: Denies excessive sweating, polydipsia or polyuria Hematologic/Lymphatic Hematologic/Lymphatic: Denies easy bleeding, easy bruising or lymphadenopathy Allergic/Immunologic Allergic/Immunologic: Denies itchy eyes, lip swelling, seasonal rhinorrhea, rhinitis, throat swelling, tongue swelling, eczemia, wheezing or asthma Vital Signs Vital Signs Vital Signs: 06/15/24 11:20 06/15/24 11:20 06/15/24 11:20 Temperature 97.9 F Temperature Source Temporal Pulse Rate Respiratory Rate 16 Blood Pressure BP Systolic BP Diastolic Pulse Ox 06/15/24 11:27 06/15/24 11:27 06/15/24 14:07 Temperature Temperature Source Pulse Rate 96 102 H Respiratory Rate Blood Pressure 136/73 H BP Systolic 136 BP Diastolic 73 Pulse Ox 06/15/24 14:07 06/15/24 14:07 06/15/24 14:07 Temperature Temperature Source Pulse Rate 93 Respiratory Rate Blood Pressure 132/60 H BP Systolic 132 BP Diastolic 60 Pulse Ox 97 06/15/24 14:12 06/15/24 14:12 06/15/24 14:13 Temperature Temperature Source Pulse Rate 95 Respiratory Rate Blood Pressure 130/74 H BP Systolic 130 BP Diastolic 74 Pulse Ox 97 06/15/24 14:13 06/15/24 14:17 06/15/24 14:17 Temperature Temperature Source Pulse Rate 96 108 H Respiratory Rate Blood Pressure BP Systolic BP Diastolic Pulse Ox 97 06/15/24 14:18 06/15/24 14:18 06/15/24 14:22 Temperature Temperature Source Pulse Rate 85 Respiratory Rate Blood Pressure 120/73 120/74 BP Systolic 120 120 BP Diastolic 73 74 Pulse Ox 06/15/24 14:22 06/15/24 14:22 06/15/24 14:27 Temperature Temperature Source Pulse Rate 90 93 Respiratory Rate Blood Pressure BP Systolic BP Diastolic Pulse Ox 97 06/15/24 14:27 06/15/24 14:28 06/15/24 14:28 Temperature Temperature Source Pulse Rate 95 Respiratory Rate Blood Pressure 113/68 BP Systolic 113 BP Diastolic 68 Pulse Ox 96 06/15/24 14:31 06/15/24 14:31 06/15/24 14:32 Temperature Temperature Source Pulse Rate 101 H 105 H Respiratory Rate Blood Pressure 107/67 BP Systolic 107 BP Diastolic 67 Pulse Ox 06/15/24 14:32 06/15/24 14:33 06/15/24 14:33 Temperature Temperature Source Pulse Rate 96 Respiratory Rate Blood Pressure 112/75 BP Systolic 112 BP Diastolic 75 Pulse Ox 97 06/15/24 14:37 06/15/24 14:37 06/15/24 14:37 Temperature Temperature Source Pulse Rate 93 Respiratory Rate Blood Pressure 112/70 BP Systolic 112 BP Diastolic 70 Pulse Ox 98 06/15/24 14:37 06/15/24 14:42 06/15/24 14:42 Temperature Temperature Source Pulse Rate 86 93 Respiratory Rate Blood Pressure BP Systolic BP Diastolic Pulse Ox 98 06/15/24 14:44 06/15/24 14:44 06/15/24 14:48 Temperature Temperature Source Pulse Rate 83 91 Respiratory Rate Blood Pressure 110/67 BP Systolic 110 BP Diastolic 67 Pulse Ox 06/15/24 14:48 06/15/24 14:53 06/15/24 14:53 Temperature Temperature Source Pulse Rate 93 Respiratory Rate Blood Pressure BP Systolic BP Diastolic Pulse Ox 96 97 06/15/24 14:53 06/15/24 14:53 06/15/24 14:57 Temperature Temperature Source Pulse Rate 91 Respiratory Rate Blood Pressure 96/54 L 97/56 L BP Systolic 96 97 BP Diastolic 54 56 Pulse Ox 06/15/24 14:57 06/15/24 14:58 06/15/24 14:58 Temperature Temperature Source Pulse Rate 90 91 Respiratory Rate Blood Pressure BP Systolic BP Diastolic Pulse Ox 98 06/15/24 15:03 06/15/24 15:03 06/15/24 15:04 Temperature Temperature Source Pulse Rate 95 90 Respiratory Rate Blood Pressure BP Systolic BP Diastolic Pulse Ox 98 06/15/24 15:04 06/15/24 15:04 06/15/24 15:04 Temperature Temperature Source Pulse Rate 91 Respiratory Rate Blood Pressure 135/55 H BP Systolic 135 BP Diastolic 55 Pulse Ox 90 06/15/24 15:08 06/15/24 15:08 06/15/24 15:21 Temperature Temperature Source Pulse Rate 91 Respiratory Rate Blood Pressure 101/54 L BP Systolic 101 BP Diastolic 54 Pulse Ox 98 06/15/24 15:21 06/15/24 16:00 06/15/24 16:00 Temperature Temperature Source Pulse Rate 95 83 Respiratory Rate Blood Pressure BP Systolic BP Diastolic Pulse Ox 96 06/15/24 16:01 06/15/24 16:01 06/15/24 16:05 Temperature Temperature Source Pulse Rate 83 86 Respiratory Rate Blood Pressure 99/54 L BP Systolic 99 BP Diastolic 54 Pulse Ox 06/15/24 16:05 Temperature Temperature Source Pulse Rate Respiratory Rate Blood Pressure BP Systolic BP Diastolic Pulse Ox 96 Weight Weight: 154 lb 12.8 oz Body Mass Index (BMI) 26.5 Physical Exam Const alert, oriented x3, no apparent distress and healthy appearing General Appearance: cooperative; Negative for anxious HEENT normocephalic Face and Sinus: normal facial exam Eyes EOMs intact bilaterally and no scleral icterus General Eye: normal appearance of both eyes Neck full ROM and supple Lymph Lymphatic: no lymphadenopathy noted Chest Chest: abnormal inspection of the chest Resp normal respiratory effort Effort and Inspection: able to speak in complete sentences Cardio regular rate GI soft to palpation and non-tender Inspection: gravid Palpation: soft; Negative for tender external exam normal Back/Spine no CVA tenderness Extremity normal to inspection, full ROM and no clubbing, cyanosis or edema General Extremity: Negative for calf tenderness or edema Skin Lesions: no lesions Rashes: no rashes Psych mental status grossly normal Labs Labs Labs: Blood Type A POSITIVE Antibody Screen NEGATIVE Hct 34.8 % (37-47) L Hgb 11.9 g/dL (12.0-15.0) L Obstetrics Ultrasound Syphilis Total Ab Nonreactive (Nonreactive) Rubella IgG Antibody Reactive (Nonreactive) Hep Bs Antigen Non-Reactive (Nonreactive) Hepatitis C Antibody Non-Reactive (Nonreactive) Chlamydia DNA (LANDRY) Negative (Negative) N.gonorrhoeae DNA (LANDRY) Negative (Negative) HIV 1&2 Antibody Non-Reactive (Nonreactive) Glucose 1 Hr 50 gm 119 mg/dL (70-140) Rhogam given: No Assessment & Plan (1) Uterine size-date discrepancy, third trimester: COMMENT: growth US ordered (2) History of miscarriage, currently : (3) Supervision of high-risk : QUALIFIERS: Trimester: third trimester Qualified Code(s): O09.93 - Supervision of high risk , unspecified, third trimester COMMENT: PRR , LISBETH 06/14/24, PC Norman Ackerman, Maria G Bryan (4) Advanced maternal age (AMA) in : COMMENT: Growth US @ 32 & 36 wks (5) FH: cleft palate: COMMENT: FOB's Brother (6) : QUALIFIERS: Weeks of gestation: 40 weeks Qualified Code(s): Z3A.40 - 40 weeks gestation of COMMENT: Neg GBS. declines nipt, carrier, and afp screen. (7) COVID-19 affecting , antepartum: COMMENT: asa 81 mg daily (8) Rubella non-immune status, antepartum: COMMENT: offer MMR . indeterminate on 10/16/2021 PLAN: Plan Patient presents IAL, plan expectant management for , pitocin/AROM PRN if needed. Pain management: plans epidural. GBS negative . Management of any complications: ama I have reviewed the [facility] and made any clinically relevant updates.
--- NOTE | 2024-06-15 16:12 | EX.PCM.OBVAG ---
Assessment & Plan (1) Uterine size-date discrepancy, third trimester: COMMENT: growth US ordered (2) History of miscarriage, currently : (3) Supervision of high-risk : QUALIFIERS: Trimester: third trimester Qualified Code(s): O09.93 - Supervision of high risk , unspecified, third trimester COMMENT: PRR , LISBETH 06/14/24, Norman Terrazas, Maria G Bryan (4) Advanced maternal age (AMA) in : COMMENT: Growth US @ 32 & 36 wks (5) FH: cleft palate: COMMENT: FOB's Brother (6) : QUALIFIERS: Weeks of gestation: 40 weeks Qualified Code(s): Z3A.40 - 40 weeks gestation of COMMENT: Neg GBS. declines nipt, carrier, and afp screen. (7) COVID-19 affecting , antepartum: COMMENT: asa 81 mg daily (8) Rubella non-immune status, antepartum: COMMENT: offer MMR . indeterminate on 10/16/2021 Maternal Data Information LISBETH Calculator Estimated Delivery Date Method Current WG Current Estimate 06/10/24 Ultrasound #1 40w 5d Other Estimates 06/14/24 LMP (Certain) 40w 1d Final LISBETH: 06/11/24 Final LISBETH Source: US <20 weeks Vaginal Delivery Maternal Presentation Maternal Presentation: Active Labor Type of Induction: Amniotomy Vaginal Delivery Information Procedure Performed: Spontaneous Vaginal Delivery Surgeon/Practitioner: Vannesa Albrecht Date of Procedure: 06/15/24 Pre-Procedure Diagnosis: 38 y/o @ 40weeks 5 days, active labor Post-Procedure Diagnosis: 38 y/o @ 40weeks 5 days, active labor Type of anesthesia: Epidural Estimated Blood Loss: 200cc Time of Delivery: 15:50 Findings Description of procedure: Patient began pushing and delivered the head in the CHRISTINA presentation. The head was delivered atraumatically. The anterior and posterior shoulders delivered without complication followed by the rest of the infant and the infant was placed on the maternal abdomen. Delayed cord clamping was employed for approximately 60 seconds. Cord was clamped and cut and gentle traction was applied to the cord and the placenta delivered spontaneously immediately following it was noted to be intact with three-vessel cord. The perineum and vagina were inspected and noted to have a 2nd degree perineal laceration. EBL was 200cc. Patient and infant tolerated delivery well. 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
--- NOTE | 2024-06-15 16:15 | DCINST_ITS ---
Discharge Instructions Diet Discharge Diet: No restrictions DC O2, CPAP, BIPAP needs Home O2 Discharge instructions: No Dressing / Incision Discharge Activity: Return to Normal Activity, May Not Drive (while taking narcotic pain medications.) and May Shower May resume sexual activity in: 4-6 weeks Dressing / Incision Call your doctor if your incision/area has: Continuous Slow Oozing, Sudden Increased Bleeding, Increased Pain/ Swelling, Increased Redness and Foul Smelling Discharge Follow Up Care Please Follow Up With: Vannesa Albrecht, When: Call [phone] to make an appointment with your doctor in 6 weeks. If you had elevated blood pressure or 4th degree laceration, you will need to be seen in 2 weeks. Test Results: Test results from this visit will be discussed in further detail at your follow- up appointment, if applicable. Discharge Plan Admission Admit Date/Time: 06/15/24 13:20 Attending Provider: Vannesa Albrecht Primary Care Provider: Bakari Aguilar Discharge Orders/Prescriptions Prescriptions: No Action PNV-DHA 27 mg iron-1 mg -300 mg capsule PO Referrals / Follow Up: Bakari Aguilar PA [Primary Care Provider] -
[2024-06-16] VITALS (9 sets, daily range): BP systolic 84–109; BP diastolic 42–59; PULSE 83–101; RESP 16; TEMP 36–36.6; O2SAT 96–100
[2024-06-16] MEDS: Acetaminophen 500 MG Tablet 1000 MG PO ×2 (04:37→15:52)
--- NOTE | 2024-06-16 09:01 | PCM.PN.CNM ---
Subjective Subjective Patient doing well without complaints. Tolerating PO. Ambulating and voiding without difficulty. Feeding well. Denies chest pain, shortness of breath, calf pain/swelling, fevers, chills, lightheadedness. Objective Data Objective Data Vital Signs: Vital Signs Temp Pulse Resp BP Pulse Ox O2 Del Method 97.6 F L 86 16 97/54 L 96 Room Air 06/16/24 03:25 06/16/24 07:46 06/16/24 03:25 06/16/24 07:46 06/16/24 07:45 06/16/24 03:25 Oxygen Delivery Method Room Air Weight: 154 lb 12.8 oz Body Mass Index (BMI) 26.5 Intake & Output: Intake and Output for Last 24 Hours 06/14/24 06/15/24 06/16/24 23:59 23:59 23:59 Intake Total 1540 / 1540 Output Total 500 / 1450 950 / 950 Balance 1040 / 90 -950 / -950 Lab / Micro Data 06/15/24 13:30 Labs: Laboratory Results - last 24 hr 06/15/24 11:50: Vag Amniotic Fld Detect Negative 06/15/24 13:30: WBC 12.0 H, RBC 3.92 L, Hgb 11.9 L, Hct 34.8 L, MCV 88.8, MCH 30.4, MCHC 34.2, RDW Std Deviation 42.4, RDW Coeff of Kellie 13.1, Plt Count 246, MPV 11.7, Immature Gran % (Auto) 1.300 H, Neut % (Auto) 75.5 H, Lymph % (Auto) 15.5 L, [place] % (Auto) 5.7, Eos % (Auto) 1.3, Baso % (Auto) 0.7, Absolute Neuts (auto) 9.1 H, Absolute Lymphs (auto) 1.86, Nucleated RBC % 0, Syphilis Total Ab Nonreactive, Blood Type A POSITIVE, Antibody Screen NEGATIVE Physical Exam Const alert and oriented x3 Chest inspection of chest normal and inspection of breasts normal Resp normal respiratory effort and normal air movement GI normal to inspection, nondistended, normoactive bowel sounds Uterus Palpation: uterus fundus firm Extremity normal to inspection, full ROM and no calf tenderness Skin no rashes or lesions noted Psych mental status grossly normal Assessment & Plan (1) (spontaneous vaginal delivery): COMMENT: GARY girl PLAN: s/p PPD #1 1. routine post delivery care 2. breast feeding- support given 3. rh positive 4. rubella immune 5. desires early d/c home this evening after 24 hour testing/infant cleared
[2024-06-16] MEDS: Senna/Docusate Sodium 1 Tablet PO (09:31)
[2024-06-16] MEDS: Dibucaine 30 GM Tube 1 APPLIC TOPICAL (15:51)
== END 2024-06-16 17:05 | disposition home or self-care (01) | DRG 807 ==
LOC: WPOUT 13:21 → WP 13:21
PROVIDERS: Admitting Provider Obstetrics & Gynecology; PCP Physician Assistant; Referring Provider Obstetrics & Gynecology; Visit Provider Obstetrics & Gynecology
DX: O70.1 Second degree perineal laceration during delivery (principal); Z37.0 Single live birth; N96 Recurrent pregnancy loss; O48.0 Post-term pregnancy; Z3A.40 40 weeks gestation of pregnancy; O26.843 Uterine size-date discrepancy, third trimester; O99.893 Other specified diseases and conditions complicating puerperium; Z82.79 Family history of other congenital malformations, deformations and chromosomal abnormalities; Z86.16 Personal history of COVID-19; Z78.9 Other specified health status
CPT/HCPCS: 59025; 59050; 84112; 85025; 86780; 86850; 86900; 86901; 99221; G0378